=== PATIENT | male | born 1980 | race Caucasian/White ===

== ENCOUNTER → 2016-11-04 | Outpatient (CLI) | payer BC ==
[~2016-11-04] MED LIST: NORCO 325 MG-51 TAB PO
--- NOTE | 2016-11-04 10:55 | RADIOLOGY REPORT PS360 ---
ELBOW-RT-3 VIEWS HISTORY: RT ELBOW PAIN ORDERING PHYSICIAN: Paradise Pineda MD PATIENT AGE: 36 years COMPARISON: None FINDINGS: BONY STRUCTURES: No fracture or dislocation. No lytic or blastic change. Normal mineralization. SOFT TISSUES: Unremarkable. No radio opaque foreign bodies. No displaced fat pad. JOINT SPACE: Well-preserved. No significant arthritic changes evident. IMPRESSION: Negative elbow.
== END ==
LOC: RAD 10:20
DX: M25.521 Pain in right elbow (principal)

== ENCOUNTER → 2017-01-08 | Outpatient (CLI) | payer BC ==
--- NOTE | 2017-01-09 10:09 | RADIOLOGY REPORT PS360 ---
US THYROID HISTORY: THYROMEGLY ORDERING PHYSICIAN: Danita Brody MD PATIENT AGE: 36 years COMPARISON: None FINDINGS: Right lobe: 4.3 x 1.8 x 2.3 cm. Homogeneous echogenicity. 5 mm cyst with small echogenic focus superior pole 6 mm solid lesion with peripheral halo lower pole Left lobe: 4.3 x 1.1 x 1.7 cm with homogeneous echogenicity. Isthmus: Slightly prominent at 4 mm, homogeneous IMPRESSION: 2 nodules in the right lobe of the thyroid gland 1 cystic and one solid. Both have low malignant potential. Consider 6 month follow-up to confirm stability
== END ==
LOC: RAD 12:36
DX: E01.0 Iodine-deficiency related diffuse (endemic) goiter (principal)